=== PATIENT | female | born 1965 ===

== ENCOUNTER → 2024-07-03 | Outpatient (CLI) | payer OTHER ==
[~2024-07-03] MED LIST: 1/2 NS 250ml250 ML; AMLO5 PO; Acetaminophen650 M1 PO; B COMPLEX WITH1 EACH; BACL10 PO; CULTURELLE PRO; FOLI1; LEFLUNOMIDE20 M2 PO; LEVSOD25 PO
[2024-07-06 10:25] LABS: Campylobacter Sp Not Detected (NOT DETECT)
[2024-07-06 10:26] LABS: Adenovirus F 40/41 Not Detected (NOT DETECT); Astrovirus Not Detected (NOT DETECT); Cryptosporidium Not Detected (NOT DETECT); Cyclospora Cayetanensis Not Detected (NOT DETECT); E. Coli O157 Not Detected (NOT DETECT); Entamoeba Histolytica Not Detected (NOT DETECT); Enteroaggregative E. coli-EAEC Not Detected (NOT DETECT); Enteropathogenic E. coli-EPEC Not Detected (NOT DETECT); Enterotoxigenic E. coli-ETEC Not Detected (NOT DETECT); Giardia Lamblia Not Detected (NOT DETECT); Norovirus GI/GII Not Detected (NOT DETECT); Plesiomonas Shigelloides Not Detected (NOT DETECT); Rotavirus A Not Detected (NOT DETECT); Salmonella Sp Not Detected (NOT DETECT); Sapovirus Not Detected (NOT DETECT); Shiga Toxin-prod E. coli-STEC Not Detected (NOT DETECT); Shigella/Enteroin E. coli-EIEC Not Detected (NOT DETECT); Vibrio Cholerae Not Detected (NOT DETECT); Vibrio Sp Not Detected (NOT DETECT); Yersinia Enterocolitica Not Detected (NOT DETECT)
== END | disposition home or self-care (01) ==
LOC: LAB SHORT 17:00 → LAB 17:00
PROVIDERS: Physician Assistant
DX: R19.7 Diarrhea, unspecified (principal)
CPT/HCPCS: 87324; 87507

== ENCOUNTER → 2025-01-23 | Outpatient (CLI) | payer MEDICARE ==
[2025-01-26 16:41] LABS: CALPROTECTIN,FECAL 164 ug/g (<=49)
== END | disposition home or self-care (01) ==
LOC: LAB 14:49 → LAB SHORT 14:49
PROVIDERS: Internal Medicine
DX: K52.9 Noninfective gastroenteritis and colitis, unspecified (principal)
CPT/HCPCS: 83993

== ENCOUNTER → 2025-03-08 | Outpatient (CLI) | payer MEDICARE ==
[2025-03-12 12:07] LABS: PANCREATIC ELASTASE,FECAL >800 ug/g (>=100)
== END | disposition home or self-care (01) ==
LOC: LAB SHORT 05:05 → LAB 05:05 → LAB FUT 02-22 11:25
PROVIDERS: Family Medicine
DX: K52.9 Noninfective gastroenteritis and colitis, unspecified (principal)
CPT/HCPCS: 82653; 89055